=== PATIENT | female | born 1955 | race Caucasian/White ===

== ENCOUNTER → 2016-11-26 | Day surgery (SDC) | payer MEDICARE, OTHER ==
[~2016-11-26] MED LIST: AMIT25TA PO; FLUT1DIS3 IH; IBUP-1060 PO; IPRA14.7 IH; IPRATRPIUM/ALBUTEROL 0.5/2.5MG 3 ML NEBU. NEB ONE; IV RINGERS,LACTATED 1000ML 1,000 ML IV SCH; LEVO100T5 PO; LEVO750T31 PO; LIDOCAINE 2% PF Vial for OR 5 ML VIAL. ONE; LORA0.5T PO; ONDA4SOL PO; POTA10CA PO; PROPOFOL 20 ML IV ONE; TIOT18CA IH; TRAM50TA PO; ZOLP10TA4 PO; trazadone PO
[2016-11-26 16:45] VITALS: BP 144/91
--- NOTE | 2016-11-28 00:14 | CONS ---
DATE OF CONSULTATION: 11/26/2016 REFERRING PHYSICIAN: RBUI Alcantar HISTORY OF PRESENT ILLNESS: This is a 61-year-old female with past medical history significant for alcoholic cirrhosis, chronic pancreatitis, gastroesophageal reflux disease, hypothyroidism as well as COPD and asthma who is seen for recurrent dysphagia to solids in the substernal location, EGD with possible dilatation. Biopsies were recommended. The patient is willing to proceed. PAST MEDICAL HISTORY: COPD, asthma, cirrhosis, pancreatitis, and hypothyroidism. ALLERGIES: ASPIRIN. MEDICATIONS: Include amitriptyline, Advair, ibuprofen, albuterol, levothyroxine, lorazepam, Zofran, potassium, Spiriva, tramadol, and zolpidem. SOCIAL HISTORY: She is an ex-smoker and drinker. FAMILY HISTORY: Noncontributory. REVIEW OF SYSTEMS: Per records. PAST SURGICAL HISTORY: Status post tonsillectomy, cholecystectomy, and tubal ligation. PHYSICAL EXAMINATION: GENERAL: Reveals a thin female who is alert and cooperative, in mild distress. VITAL SIGNS: Temperature 98, pulse is 95, respirations 18, saturations 91% on 3 liters nasal cannula. HEENT: Normocephalic and atraumatic head. Pupils and extraocular muscles not tested. Sclerae anicteric. NECK: Supple. LUNGS: Reveal decreased breath sounds. CARDIOVASCULAR: Reveals S1, S2 without S3, S4 or appreciable murmur. ABDOMEN: Reveals a soft abdomen, normal bowel sounds, without appreciable hepatosplenomegaly. EXTREMITIES: Reveals no cyanosis, clubbing or edema. IMPRESSION: Dysphagia, most likely secondary to Schatzki's ring, malignancy, Vaca's, achalasia or eosinophilic esophagitis is on the differential. Recommend upper endoscopy, possible biopsy and dilatation. Risks and benefits of procedure including risk of perforation have been discussed previously and she is willing to proceed at this time. I thank Dr. Rambo Hathaway for allowing us to consult and participate in this patient's care. BREN PLAZA MD DR: POOL/cherie JOB#: [id number] / [id number]
--- NOTE | 2016-11-28 14:14 | PATHOLOGY ---
PATHOLOGY REPORT * * * * * * * * FINAL DIAGNOSIS: Esophageal biopsy, gastroesophageal junction ulcer: - Segments of hyperplastic squamous esophageal mucosa showing ulceration, acute inflammation, and acutely inflamed granulation tissue. COMMENT: The findings are consistent with reflux esophagitis with ulceration. There are no viral inclusions. There is no evidence of malignancy. (ESHAM:; d/t: 11/28/16) REPORT ELECTRONICALLY SIGNED BY: You Plummer M.D. DATE/TIME: 11/28/2016 14:14 * * * * * * * * GROSS PATHOLOGY: Received in formalin labeled "Alejandra Banuelos, GE junction ulcer biopsy," are four segments of gibson soft tissue measuring 0.8 x 0.5 x 0.1 cm in aggregate dimensions and ranging from 0.3 to 0.5 cm in maximum dimension. The specimen is submitted entirely in cassette A1. (CAA; 11/27/2016) INITIAL CPT CODE(S): A; 67098 Professional services performed by [facility] [place] [address] Technical services performed by [facility] at [address] [place] [address]. SPECIMEN(S) RECEIVED: A.GE junction ulcer biopsy CLINICAL HISTORY: Dysphagia PATIENT: ALEJANDRA BANUELOS /AGE: 805/24/1955 (Age: 61) PATIENT #: [id number] ALT CASE #: SPECIMEN COLLECTION DATE: 11/26/2016 SPECIMEN RECEIVED DATE: 11/27/2016 [facility] - [address] [place] [address] - PHONE: [phone] * * * END OF REPORT * * *
== END | disposition home or self-care (01) ==
LOC: ENDOS 15:17
PROVIDERS: ATTEND Internal Medicine Gastroenterology
DX: K22.11 Ulcer of esophagus with bleeding (principal); K29.50 Unspecified chronic gastritis without bleeding; K21.0 Gastro-esophageal reflux disease with esophagitis; E78.00 Pure hypercholesterolemia, unspecified; J44.9 Chronic obstructive pulmonary disease, unspecified; J45.909 Unspecified asthma, uncomplicated; M19.90 Unspecified osteoarthritis, unspecified site; E03.9 Hypothyroidism, unspecified; F32.9 Major depressive disorder, single episode, unspecified; Z87.39 Personal history of other diseases of the musculoskeletal system and connective tissue; Z98.51 Tubal ligation status; Z90.49 Acquired absence of other specified parts of digestive tract
CPT/HCPCS: 43239; 88305; 94640; J2704; J7620